=== PATIENT | male | born 2000 | race Caucasian/White ===

== ENCOUNTER 2023-04-25 09:39 | Emergency (ER) | payer BC ==
[2023-04-25 09:47] VITALS: BP 106/71; PULSE 83; RESP 20; TEMP 100.5; BMI 24.4
[2023-04-25] MEDS ORDERED: ONDANSETRON *ODT* 4 MG TABLET SL ONE (09:59)
[2023-04-25] MEDS ORDERED: ACETAMINOPHEN 500 MG TABLET (FP) PO ONE (09:59)
[2023-04-25] MEDS ORDERED: ACETAMINOPHEN 500 MG TABLET (FP) ONE (10:15)
[2023-04-25] MEDS ORDERED: ONDANSETRON *ODT* 4 MG TABLET ONE (10:15)
[2023-04-25 11:24] LABS: THROAT:GRP A STREP NOT DETECTED (NOTDETECTED)
== END 2023-04-25 12:02 | disposition home or self-care (01) ==
LOC: JERFT 09:39
DX: J10.1 Influenza due to other identified influenza virus with other respiratory manifestations (principal); R51.9 Headache, unspecified; R09.81 Nasal congestion; R50.9 Fever, unspecified; R09.82 Postnasal drip; Z20.822 Contact with and (suspected) exposure to COVID-19
CPT/HCPCS: 0241U-QW; 87651; 99283-25; Q0162